=== PATIENT | female | born 1980 | race American Indian/Alaskan Native ===

== ENCOUNTER 2017-12-01 00:29 | Emergency (ER) | payer SELFPAY | END 2017-12-01 00:30 | disposition left against medical advice (07) | LOC: ED 00:29 | DX: R10.9 Unspecified abdominal pain (principal); Z53.21 Procedure and treatment not carried out due to patient leaving prior to being seen by health care provider ==

== ENCOUNTER 2018-11-25 08:30 | Emergency (ER) | payer BC ==
[2018-11-25 08:42] VITALS: BP 150/95
--- NOTE | 2018-11-25 09:22 | Emergency Department Report ---
ED General Adult HPI - General Chief complaint: Sore Throat Stated complaint: BI EARACHE/HEADACHE Time Seen by Provider: 11/25/18 09:02 Source: patient Mode of arrival: Ambulatory Limitations: No Limitations - History of Present Illness Initial comments: Patient is a 38-year-old Female presenting with right-sided headache for the past 2 weeks. Patient states she has difficulty eating secondary to some tooth pain on the right side but then radiates up into her head and her right ear. Patient states she also has a ringing sensation in the ear. Patient states the pain is aching and throbbing is 8 out of 10 in severity. Patient has a mild sore throat but has no major difficulty in swallowing. Patient denies nausea vomiting fevers chills or neck stiffness at this time. - Related Data Previous Rx's Medication Instructions Recorded Last Taken Type Clindamycin [Clindamycin CAP] 300 mg PO Q8H #21 cap 11/25/18 Unknown Rx Ibuprofen [Motrin 600 MG tab] 600 mg PO Q8H PRN #20 tablet 11/25/18 Unknown Rx traMADol [Ultram] 50 mg PO Q6HR PRN #12 tablet 11/25/18 Unknown Rx Allergies Allergy/AdvReac Type Severity Reaction Status Date / Time No Known Allergies Allergy Unverified 11/25/18 08:33 ED Review of Systems ROS: Stated complaint: BI EARACHE/HEADACHE Other details as noted in HPI Comment: All other systems reviewed and negative ED Past Medical Hx - Past Medical History Previous Medical History?: No - Surgical History Past Surgical History?: No - Social History Smoking Status: Never Smoker - Medications Home Medications: Home Medications Medication Instructions Recorded Confirmed Last Taken Type Clindamycin [Clindamycin CAP] 300 mg PO Q8H #21 cap 11/25/18 Unknown Rx Ibuprofen [Motrin 600 MG tab] 600 mg PO Q8H PRN #20 tablet 11/25/18 Unknown Rx traMADol [Ultram] 50 mg PO Q6HR PRN #12 tablet 11/25/18 Unknown Rx ED Physical Exam - General Limitations: No Limitations General appearance: alert, in no apparent distress - Head Head exam: Present: atraumatic, normocephalic - Eye Eye exam: Present: normal appearance, PERRL, EOMI - ENT ENT exam: Present: TM's normal bilaterally - Expanded ENT Exam Expanded Ear exam: Present: normal external inspection Mouth exam: Present: tongue normal. Absent: drooling, trismus, muffled voice 1 - Dental Tenderness - Neck Neck exam: Present: lymphadenopathy (right sided ant cerv lymphnodes) - Respiratory Respiratory exam: Absent: respiratory distress - Extremities Exam Extremities exam: Present: normal inspection ED Course Vital Signs 11/25/18 08:41 Temperature 98.4 F Pulse Rate 82 Respiratory 16 Rate Blood Pressure 150/95 O2 Sat by Pulse 98 Oximetry ED Medical Decision Making - Medical Decision Making Patient with a likely dental abscess the right lower teeth. Critical care attestation.: If time is entered above; I have spent that time in minutes in the direct care of this critically ill patient, excluding procedure time. ED Disposition Clinical Impression: Dental abscess Disposition: - TO HOME OR SELFCARE Is pt being admited?: No Does the pt Need Aspirin: No Condition: Stable Instructions: Dental Abscess (ED) Time of Disposition: 09:26
== END 2018-11-25 09:34 | disposition home or self-care (01) ==
LOC: ED 08:30
DX: K04.7 Periapical abscess without sinus (principal); H92.01 Otalgia, right ear; Z79.1 Long term (current) use of non-steroidal anti-inflammatories (NSAID)
CPT/HCPCS: 99282